=== PATIENT | female | born 2000 | race Hispanic/Latino ===

== ENCOUNTER 2021-05-11 12:02 | Day surgery (SDC) | payer OTHER ==
[2021-05-11] MEDS ORDERED: hydrALAZINE 20 MG/ML VIAL SLOW IVP PRN (13:01)
[2021-05-11] MEDS ORDERED: Famotidine 20 MG TAB PO SCH (13:15)
[2021-05-11 13:25] LABS: Hemoglobin 11.1 g/dL (12.0-15.5); Mean Corpuscular HGB CONC 31.8 g/dL (32.0-36.0); Mean Corpuscular Volume 88.1 fl (81.6-98.3); Platelet Count 292 10x3/uL (150-450); RBC Distribution Width 14.9 % (11.5-14.5); Red Blood Cell (RBC) Count 3.96 10x6/uL (3.90-5.03); White Blood Cell (WBC) Count 13.2 10x3/uL (3.5-10.5)
[2021-05-11 13:56] LABS: Lymphocytes 16 % (28-48); Monocytes 8 % (0-4)
[2021-05-11 13:57] LABS: Platelet Morphology Comment Appears Adequate
[2021-05-11 14:39] LABS: Bilirubin Neg (Negative); Blood, Urine Negative (Negative); Clarity Clear (Clear); Glucose, Urine (Dipstick) Normal (Negative); Ketone, Urine Negative (Negative); Leukocyte Negative (Negative); Nitrite Negative (Negative); Protein, Urine (Dipstick) Negative (Neg-Trace); Urobilinogen Normal mg/dL (Less than 2)
[2021-05-11 14:43] LABS: Urine Culture Reflex No No
[2021-05-11 14:47] LABS: Bacteria/HPF 1+ HPF (None Seen); RBC/HPF 0-3 HPF (0-3); WBC/HPF 0-3 HPF (0-3)
[2021-05-11 14:55] VITALS: BMI 30.3
[2021-05-11] MEDS ORDERED: Promethazine HCl 25 MG/ML VIAL IM SCH (18:00)
[2021-05-11] MEDS ORDERED: Morphine 4 MG/ML VIAL ONE (18:21)
[2021-05-11] MEDS ORDERED: Morphine 4 MG/ML VIAL IM SCH (18:30)
== END 2021-05-11 19:00 | disposition home or self-care (01) ==
LOC: CSHLD/OP 12:02
PROVIDERS: ATTEND Obstetrics & Gynecology
DX: O99.891 Other specified diseases and conditions complicating pregnancy (principal); R10.31 Right lower quadrant pain; R10.33 Periumbilical pain; N13.30 Unspecified hydronephrosis; O99.112 Other diseases of the blood and blood-forming organs and certain disorders involving the immune mechanism complicating pregnancy, second trimester; D72.829 Elevated white blood cell count, unspecified; Z3A.25 25 weeks gestation of pregnancy
CPT/HCPCS: 36415; 74181; 81001; 85007; 85027; J2270; J2550

== ENCOUNTER 2021-07-13 15:22 | Day surgery (SDC) | payer OTHER ==
[2021-07-13 15:37] VITALS: BMI 34.0
[2021-07-13] MEDS ORDERED: hydrALAZINE 20 MG/ML VIAL SLOW IVP PRN (16:32)
[2021-07-13] MEDS ORDERED: Acetaminophen 500 MG TAB PO SCH (16:45)
== END 2021-07-13 18:00 | disposition home or self-care (01) ==
LOC: CSHLD/OP 15:22
PROVIDERS: ATTEND Obstetrics & Gynecology
DX: O36.8130 Decreased fetal movements, third trimester, not applicable or unspecified (principal); O13.3 Gestational [pregnancy-induced] hypertension without significant proteinuria, third trimester; Z3A.33 33 weeks gestation of pregnancy; Z79.82 Long term (current) use of aspirin
CPT/HCPCS: 76819

== ENCOUNTER 2021-07-25 11:23 | Day surgery (SDC) | payer OTHER ==
[2021-07-25 12:18] VITALS: BMI 35.1
[2021-07-25] MEDS ORDERED: hydrALAZINE 20 MG/ML VIAL SLOW IVP PRN (12:45)
[2021-07-25 12:59] LABS: Creatinine, Urine 137.48 mg/dL (47-110)
[2021-07-25] MEDS ORDERED: Acetaminophen 500 MG TAB PO SCH ×2 (13:00→15:00)
[2021-07-25] MEDS ORDERED: Metoclopramide HCl 10 MG/2 ML VIAL IVP PRN (13:25)
[2021-07-25] MEDS ORDERED: diphenhydrAMINE 50 MG/ML VIAL IVP PRN (13:25)
[2021-07-25] MEDS ORDERED: Metoclopramide HCl 10 MG/2 ML VIAL IVP SCH (13:30)
[2021-07-25] MEDS ORDERED: diphenhydrAMINE 50 MG/ML VIAL IVP SCH (13:30)
[2021-07-25 13:46] LABS: #Eosinphils 0.1 10x3/uL (0.0-0.5); #Monocytes 0.9 10x3/uL (0.0-1.1); #Neutrophils 6.4 10x3/uL (1.5-8.4); %Basophils 0.3 % (0.0-2.0); %Eosinophils 0.9 % (0.0-6.0); %Lymphocytes 18.1 % (18.0-47.0); %Monocytes 10.1 % (0.0-10.0); %Neutrophils 69.8 % (40.0-75.0); Hemoglobin 11.2 g/dL (12.0-15.5); Mean Corpuscular HGB CONC 31.9 g/dL (32.0-36.0); Mean Corpuscular Hemoglobin 27.5 pg (27.0-33.0); Mean Corpuscular Volume 86.2 fl (81.6-98.3); Platelet Count 302 10x3/uL (150-450); Red Blood Cell (RBC) Count 4.07 10x6/uL (3.90-5.03); White Blood Cell (WBC) Count 9.2 10x3/uL (3.5-10.5)
[2021-07-25 14:01] LABS: ALT (SGPT) 12 U/L (8-55); AST (SGOT) 15 U/L (5-30); Albumin 3.3 g/dL (3.5-5.0); Alkaline Phosphatase 152 U/L (40-100); Anion Gap 13 mmol/L (10-20); BUN (Urea Nitrogen) 10 mg/dL (8.4-21.0); Bilirubin, Total 0.2 mg/dL (0.2-1.2); Calc. Creatinine Clearance 194 mL/min (70-130); Carbon Dioxide 21 mmol/L (22-29); Chloride 107 mmol/L (98-107); Globulin 3.3 g/dL (2.4-3.5); Glucose 107 mg/dL (70-105); Potassium 4.4 mmol/L (3.5-5.1); Protein, Total 6.6 g/dL (6.0-8.3); Sodium 137 mmol/L (136-145)
== END 2021-07-25 15:40 | disposition home or self-care (01) ==
LOC: CSHLD/OP 11:23
PROVIDERS: ATTEND Emergency Medicine
DX: O99.891 Other specified diseases and conditions complicating pregnancy (principal); R51.9 Headache, unspecified; R03.0 Elevated blood-pressure reading, without diagnosis of hypertension; O99.333 Smoking (tobacco) complicating pregnancy, third trimester; F17.290 Nicotine dependence, other tobacco product, uncomplicated; O10.013 Pre-existing essential hypertension complicating pregnancy, third trimester; Z3A.35 35 weeks gestation of pregnancy; Z79.82 Long term (current) use of aspirin; Z98.890 Other specified postprocedural states
CPT/HCPCS: 80053; 82570; 84156; 85025; J1200; J2765

== ENCOUNTER 2021-07-30 18:34 | Inpatient (IN) | payer OTHER ==
[2021-07-30] MEDS ORDERED: hydrALAZINE 20 MG/ML VIAL SLOW IVP PRN ×2 (19:16→23:14)
[2021-07-30 21:32] LABS: #Eosinphils 0.1 10x3/uL (0.0-0.5); #Neutrophils 11.4 10x3/uL (1.5-8.4); %Basophils 0.2 % (0.0-2.0); %Eosinophils 0.5 % (0.0-6.0); %Lymphocytes 12.2 % (18.0-47.0); %Monocytes 6.9 % (0.0-10.0); %Neutrophils 79.8 % (40.0-75.0); Hemoglobin 11.2 g/dL (12.0-15.5); Mean Corpuscular HGB CONC 31.6 g/dL (32.0-36.0); Mean Corpuscular Hemoglobin 26.9 pg (27.0-33.0); Mean Corpuscular Volume 85.1 fl (81.6-98.3); Mean Platelet Volume 11.3 fl (7.4-10.4); Platelet Count 287 10x3/uL (150-450); Red Blood Cell (RBC) Count 4.16 10x6/uL (3.90-5.03); White Blood Cell (WBC) Count 14.3 10x3/uL (3.5-10.5)
[2021-07-30 21:36] LABS: Bilirubin Neg (Negative); Blood, Urine 25 (Negative); Clarity Slightly Cloudy (Clear); Glucose, Urine (Dipstick) Normal (Negative); Ketone, Urine Negative (Negative); Leukocyte 100 (Negative); Nitrite Negative (Negative); Protein, Urine (Dipstick) 30 mg/dl (Neg-Trace); Specific Gravity, Urine 1.025 (1.002-1.036); Urobilinogen Normal mg/dL (Less than 2)
[2021-07-30 21:44] LABS: Bacteria/HPF 4+ HPF (None Seen); Mucous/LPF 2+ LPF (<2+); RBC/HPF 0-3 HPF (0-3); Squamous Epithelial 21-50 HPF (0-3)
[2021-07-30 21:47] LABS: ALT (SGPT) 10 U/L (8-55); AST (SGOT) 13 U/L (5-30); Albumin 3.4 g/dL (3.5-5.0); Alkaline Phosphatase 153 U/L (40-100); Anion Gap 15 mmol/L (10-20); BUN (Urea Nitrogen) 10 mg/dL (8.4-21.0); Bilirubin, Total 0.2 mg/dL (0.2-1.2); Calc. Creatinine Clearance 0 mL/min (70-130); Calcium 9.3 mg/dL (7.8-10.44); Carbon Dioxide 21 mmol/L (22-29); Chloride 107 mmol/L (98-107); Globulin 2.8 g/dL (2.4-3.5); Glucose 98 mg/dL (70-105); Protein, Total 6.2 g/dL (6.0-8.3); Sodium 139 mmol/L (136-145)
[2021-07-30] MEDS ORDERED: Acetaminophen 500 MG TAB PO SCH (22:00)
[2021-07-30] MEDS ORDERED: Promethazine HCl 25 MG/ML VIAL IM PRN (23:14)
[2021-07-30] MEDS ORDERED: Ondansetron PF 4 MG/2 ML Vial IVP PRN (23:14)
[2021-07-30] MEDS ORDERED: traMADol HCl 50 MG TAB PO PRN (23:24)
[2021-07-31 00:15] VITALS: BMI 36.0
[2021-07-31] MEDS ORDERED: Labetalol HCl 100 MG TAB PO SCH ×3 (00:15→13:30)
[2021-07-31] MEDS ORDERED: Acetaminophen 325 MG TAB PO PRN (08:30)
[2021-07-31] MEDS ORDERED: traMADol HCl 50 MG TAB PO PRN (08:31)
[2021-07-31] MEDS: Prenatal Vitamin 1 TAB PO SCH (08:52)
[2021-07-31] MEDS: Aspirin Chewable 81 MG TAB PO SCH (08:53)
[2021-07-31] MEDS ORDERED: Acetaminophen 500 MG TAB PO SCH (10:00)
[2021-07-31] MEDS ORDERED: Acetaminophen 325 MG TAB PO SCH (10:00)
[2021-07-31 10:30] LABS: Anion Gap 13 mmol/L (10-20); BUN (Urea Nitrogen) 10 mg/dL (8.4-21.0); Calc. Creatinine Clearance 196 mL/min (70-130); Calcium 8.9 mg/dL (7.8-10.44); Carbon Dioxide 21 mmol/L (22-29); Chloride 109 mmol/L (98-107); Glucose 127 mg/dL (70-105); Potassium 3.7 mmol/L (3.5-5.1); Sodium 139 mmol/L (136-145)
[2021-07-31] MEDS ORDERED: Morphine 4 MG/ML VIAL SLOW IVP PRN (11:26)
[2021-07-31] MEDS: HYDROcodone/Acetaminophen 5/325 mg Tablet PO PRN (12:12)
[2021-07-31 12:50] LABS: Creatinine, Urine 66.87 mg/dL (47-110); Protein, Urine Random Quant Less than 10 mg/dL (1-14)
[2021-07-31] MEDS ORDERED: HYDROcodone/Acetaminophen 5/325 mg Tablet PO PRN (16:44)
[2021-07-31] MEDS ORDERED: diphenhydrAMINE 50 MG/ML VIAL IVP SCH ×2 (16:45→17:00)
[2021-07-31 22:06] LABS: SARS-CoV-2 PCR by NAA Not Detected (NotDetected)
[2021-08-01 04:39] LABS: Anion Gap 17 mmol/L (10-20); BUN (Urea Nitrogen) 8 mg/dL (8.4-21.0); Calc. Creatinine Clearance 224 mL/min (70-130); Carbon Dioxide 19 mmol/L (22-29); Chloride 107 mmol/L (98-107); Glucose 89 mg/dL (70-105); Sodium 139 mmol/L (136-145)
[2021-08-01] MEDS: HYDROcodone/Acetaminophen 5/325 mg Tablet PO PRN (08:52)
[2021-08-01] MEDS: Aspirin Chewable 81 MG TAB PO SCH (08:52)
[2021-08-01] MEDS: Prenatal Vitamin 1 TAB PO SCH (08:52)
[2021-08-01 15:19] VITALS: BP 132/81; TEMP 97.8
== END 2021-08-01 15:55 | disposition home or self-care (01) | DRG 832 ==
LOC: CSHLD/OP 18:34 → CSHLD 23:44 → INTOOBSV 23:44 → CSHANTE 07-31 01:00 → OBSVTOIN 08-01 07:43
PROVIDERS: ADMIT Family Medicine; ATTEND Family Medicine
DX: O99.891 Other specified diseases and conditions complicating pregnancy (principal); N13.30 Unspecified hydronephrosis; O10.913 Unspecified pre-existing hypertension complicating pregnancy, third trimester; Z3A.36 36 weeks gestation of pregnancy; Z20.822 Contact with and (suspected) exposure to COVID-19; Z79.899 Other long term (current) drug therapy; O43.893 Other placental disorders, third trimester; Z79.82 Long term (current) use of aspirin; O99.353 Diseases of the nervous system complicating pregnancy, third trimester; G43.909 Migraine, unspecified, not intractable, without status migrainosus
CPT/HCPCS: 36415; 51701; 76700; 76705; 76815; 80048; 80053; 81003; 81015; 82570; 84156; 85025; 99285; J1200; J2270; U0003; U0005

== ENCOUNTER 2021-08-05 18:00 | Inpatient (IN) | payer OTHER ==
[~2021-08-05 18:00] MED LIST: Bupivacaine 0.25% HCL 30 ML VIAL ONE; Bupivacaine HCl 0.5%/Epinephrine 1:200,000/PF 30 ml Vial ONE
[2021-08-05] MEDS ORDERED: hydrALAZINE 20 MG/ML VIAL SLOW IVP PRN (20:21)
[2021-08-05] MEDS ORDERED: Promethazine HCl 25 MG/ML VIAL IM PRN (20:21)
[2021-08-05] MEDS ORDERED: Ondansetron PF 4 MG/2 ML Vial IVP PRN (20:21)
[2021-08-05] MEDS ORDERED: Lidocaine 1% (PF) 30 ML VIAL SC PRN (20:26)
[2021-08-05 20:44] VITALS: BMI 36.6
[2021-08-05 22:01] LABS: #Monocytes 0.9 10x3/uL (0.0-1.1); %Basophils 0.2 % (0.0-2.0); %Eosinophils 0.5 % (0.0-6.0); %Lymphocytes 19.6 % (18.0-47.0); %Monocytes 9.8 % (0.0-10.0); %Neutrophils 69.1 % (40.0-75.0); Hemoglobin 10.2 g/dL (12.0-15.5); Mean Corpuscular HGB CONC 32.2 g/dL (32.0-36.0); Mean Corpuscular Volume 83.9 fl (81.6-98.3); Mean Platelet Volume 11.5 fl (7.4-10.4); Platelet Count 265 10x3/uL (150-450); RBC Distribution Width 13.5 % (11.5-14.5); Red Blood Cell (RBC) Count 3.78 10x6/uL (3.90-5.03); White Blood Cell (WBC) Count 8.7 10x3/uL (3.5-10.5)
[2021-08-05 22:16] LABS: ALT (SGPT) 13 U/L (8-55); AST (SGOT) 16 U/L (5-30); Albumin 3.2 g/dL (3.5-5.0); Alkaline Phosphatase 145 U/L (40-100); Anion Gap 14 mmol/L (10-20); BUN (Urea Nitrogen) 13 mg/dL (8.4-21.0); Bilirubin, Total 0.2 mg/dL (0.2-1.2); Calc. Creatinine Clearance 191 mL/min (70-130); Calcium 9.3 mg/dL (7.8-10.44); Carbon Dioxide 20 mmol/L (22-29); Chloride 108 mmol/L (98-107); Creatinine, Urine 88.93 mg/dL (47-110); Globulin 3.1 g/dL (2.4-3.5); Glucose 83 mg/dL (70-105); Potassium 3.9 mmol/L (3.5-5.1); Protein, Total 6.3 g/dL (6.0-8.3); Protein, Urine Random Quant Less than 10 mg/dL (1-14); Sodium 138 mmol/L (136-145)
[2021-08-05] MEDS: Misoprostol 100 MCG TAB VAG SCH (22:18)
[2021-08-05] MEDS ORDERED: Lactated Ringer's 1,000 ML IV SCH (22:30)
[2021-08-05 22:33] LABS: Hep B Surf Ag Non-Reactive S/CO (NonReactive); Syphilis Antibody Nonreactive (Nonreactive); Syphilis Antibody Index 0.04 S/CO (<1.00 Non-Reactive)
[2021-08-06] MEDS ORDERED: HYDROcodone/Acetaminophen 5/325 mg Tablet PO SCH (02:45)
[2021-08-06] MEDS ORDERED: Acetaminophen 500 MG TAB PO SCH (02:45)
[2021-08-06] MEDS: NS w/ Oxytocin 30 units 500 ML IV SCH (13:16)
[2021-08-06] MEDS ORDERED: Fentanyl 2 mcg/Bup 0.1% Cadd 100 ML ONE (19:05)
[2021-08-06] MEDS ORDERED: Fentanyl 100 MCG/2 ML VIAL ONE (19:57)
[2021-08-06] MEDS ORDERED: Naloxone HCl 0.4 mg/ml Vial IVP PRN ×2 (20:01)
[2021-08-06] MEDS ORDERED: Ondansetron PF 4 MG/2 ML Vial IVP PRN (20:01)
[2021-08-06] MEDS ORDERED: diphenhydrAMINE 50 MG/ML VIAL IVP PRN (20:01)
[2021-08-06] MEDS ORDERED: Promethazine HCl 25 MG/ML VIAL IM PRN (20:01)
[2021-08-06] MEDS ORDERED: Lactated Ringer's 500 ML IV PRN (20:01)
[2021-08-06] MEDS ORDERED: Fentanyl 100 MCG/2 ML VIAL EPIDURAL PRN (20:01)
[2021-08-06] MEDS ORDERED: ePHEDrine Sulfate 50 MG/10 ML VIAL SLOW IVP PRN (20:01)
[2021-08-06] MEDS ORDERED: Moisturizing Cream (Eucerin) 113 GM JAR TOP PRN (20:01)
[2021-08-06] MEDS ORDERED: Communication Order-Pharmacy FS SCH (20:15)
[2021-08-06] MEDS ORDERED: Fentanyl 2 mcg/Bupivacaine 0.1% Cassette 100 ML EPIDURAL SCH (20:15)
[2021-08-07] MEDS ORDERED: Fentanyl 2 mcg/Bup 0.1% Cadd 100 ML ONE (03:25)
[2021-08-07] MEDS ORDERED: Misoprostol 200 MCG TAB ONE (05:02)
[2021-08-07] MEDS ORDERED: Lidocaine 1% PF 10 ML AMP ONE (05:03)
[2021-08-07] MEDS ORDERED: Ibuprofen 800 MG TAB PO PRN (10:40)
[2021-08-07] MEDS: NS w/ Oxytocin 30 units 500 ML IV SCH (11:00)
[2021-08-07] MEDS ORDERED: Ibuprofen 800 MG TAB PO SCH (11:00)
[2021-08-07] MEDS ORDERED: diphenhydrAMINE 25 MG CAP PO PRN (11:59)
[2021-08-07] MEDS ORDERED: Milk Of Magnesia 30 ML UDCUP PO PRN (11:59)
[2021-08-07] MEDS ORDERED: Benzocaine-Menthol 82.5 ML CAN TOP PRN (11:59)
[2021-08-07] MEDS ORDERED: Preparation H Ointment 28 GM TUBE PR PRN (11:59)
[2021-08-07] MEDS ORDERED: hydrALAZINE 20 MG/ML VIAL SLOW IVP PRN (11:59)
[2021-08-07] MEDS ORDERED: Ondansetron PF 4 MG/2 ML Vial IVP PRN (11:59)
[2021-08-07] MEDS ORDERED: Bisacodyl 10 MG SUPP PR PRN (11:59)
[2021-08-07] MEDS ORDERED: Lanolin Ointment 7 GM TUBE TOP PRN (11:59)
[2021-08-07] MEDS: Misoprostol 100 MCG TAB VAG SCH ×2 (12:05→12:06)
[2021-08-07] MEDS: Ferrous Sulfate 325 MG TAB PO SCH (17:13)
[2021-08-07] MEDS: Docusate 100 MG CAP PO SCH (21:34)
[2021-08-07] MEDS: Ibuprofen 800 MG TAB PO SCH (21:34)
[2021-08-08] MEDS: Ibuprofen 800 MG TAB PO SCH ×5 (04:32→22:45)
[2021-08-08] MEDS: Ferrous Sulfate 325 MG TAB PO SCH ×2 (08:43→17:16)
[2021-08-08] MEDS: Docusate 100 MG CAP PO SCH ×2 (08:48→22:44)
[2021-08-08] MEDS: Acetaminophen 325 MG TAB PO PRN ×2 (10:54→18:04)
[2021-08-09] MEDS: Acetaminophen 325 MG TAB PO PRN (00:03)
[2021-08-09] MEDS: Ibuprofen 800 MG TAB PO SCH ×2 (06:31→14:11)
[2021-08-09 07:58] VITALS: BP 121/73; TEMP 98.2
[2021-08-09] MEDS ORDERED: Prenatal Vitamin 1 TAB PO SCH (09:00)
[2021-08-09] MEDS: Docusate 100 MG CAP PO SCH (09:11)
[2021-08-09] MEDS: Ferrous Sulfate 325 MG TAB PO SCH ×2 (09:11→16:20)
== END 2021-08-09 16:55 | disposition home or self-care (01) | DRG 806 ==
LOC: CSHLD 19:46 → CSHPP 08-07 11:50
PROVIDERS: ADMIT Student in an Organized Health Care Education/Training Program; ATTEND Student in an Organized Health Care Education/Training Program
PROC: 3E0P7VZ Introduction of Hormone into Female Reproductive, Via Natural or Artificial Opening (ICD-10-PCS; principal; 2021-08-05)
PROC: 3E033VJ Introduction of Other Hormone into Peripheral Vein, Percutaneous Approach (ICD-10-PCS; 2021-08-06)
PROC: 10E0XZZ Delivery of Products of Conception, External Approach (ICD-10-PCS; 2021-08-07)
PROC: 0KQM0ZZ Repair Perineum Muscle, Open Approach (ICD-10-PCS; 2021-08-07)
DX: O99.892 Other specified diseases and conditions complicating childbirth (principal); N13.30 Unspecified hydronephrosis; Z37.0 Single live birth; O10.92 Unspecified pre-existing hypertension complicating childbirth; O99.354 Diseases of the nervous system complicating childbirth; Z3A.37 37 weeks gestation of pregnancy; Z79.899 Other long term (current) drug therapy; D56.3 Thalassemia minor; O99.02 Anemia complicating childbirth; G43.909 Migraine, unspecified, not intractable, without status migrainosus; Z79.82 Long term (current) use of aspirin; O43.113 Circumvallate placenta, third trimester; O42.02 Full-term premature rupture of membranes, onset of labor within 24 hours of rupture; O70.1 Second degree perineal laceration during delivery
CPT/HCPCS: 36415; 51701; 51702; 76815; 80053; 82570; 84156; 86780; 86850; 86900; 86901; 87340; J2590; S0020

== ENCOUNTER 2022-11-05 17:23 | Day surgery (SDC) | payer OTHER ==
[2022-11-05 17:56] VITALS: BMI 27.8
[2022-11-05] MEDS ORDERED: hydrALAZINE 20 MG/ML VIAL SLOW IVP PRN (17:56)
[2022-11-05] MEDS ORDERED: Calcium Gluc 4.6 MEQ/10 ML (100 MG/ML) SLOW IVP PRN (18:05)
[2022-11-05] MEDS ORDERED: Lorazepam 2 MG/ML VIAL SLOW IVP PRN (18:05)
[2022-11-05 18:57] LABS: #Monocytes 0.8 10x3/uL (0.0-1.1); #Neutrophils 6.8 10x3/uL (1.5-8.4); %Basophils 0.2 % (0.0-2.0); %Eosinophils 0.3 % (0.0-6.0); %Lymphocytes 17.9 % (18.0-47.0); %Monocytes 8.4 % (0.0-10.0); %Neutrophils 72.5 % (40.0-75.0); Hematocrit 36.5 % (34.9-44.5); Hemoglobin 11.9 g/dL (12.0-15.5); Mean Corpuscular HGB CONC 32.6 g/dL (32.0-36.0); Mean Corpuscular Hemoglobin 27.9 pg (27.0-33.0); Mean Corpuscular Volume 85.5 fl (81.6-98.3); Mean Platelet Volume 10.5 fl (7.4-10.4); Platelet Count 316 10x3/uL (150-450); RBC Distribution Width 13.2 % (11.5-14.5); Red Blood Cell (RBC) Count 4.27 10x6/uL (3.90-5.03); White Blood Cell (WBC) Count 9.4 10x3/uL (3.5-10.5)
[2022-11-05] MEDS ORDERED: Lactated Ringer's 1,000 ML IV SCH (19:00)
[2022-11-05 19:04] LABS: Creatinine, Urine 181.6 mg/dL (47-110)
[2022-11-05 19:12] LABS: ALT (SGPT) 10 U/L (8-55); AST (SGOT) 15 U/L (5-34); Albumin 3.2 g/dL (3.5-5.0); Alkaline Phosphatase 104 U/L (40-100); Anion Gap 13 mmol/L (10-20); BUN (Urea Nitrogen) 8 mg/dL (7.0-18.7); Bilirubin, Total 0.3 mg/dL (0.2-1.2); Calc. Creatinine Clearance 184 mL/min (70-130); Calcium 8.8 mg/dL (7.8-10.44); Carbon Dioxide 20 mmol/L (22-29); Chloride 107 mmol/L (98-107); Estimated GFR 136; Globulin 3.2 g/dL (2.4-3.5); Glucose 73 mg/dL (70-105); Potassium 4.1 mmol/L (3.5-5.1); Protein, Total 6.4 g/dL (6.0-8.3); Sodium 136 mmol/L (136-145)
[2022-11-05] MEDS ORDERED: Acetaminophen 325 MG TAB PO SCH (20:00)
== END 2022-11-05 22:27 | disposition home or self-care (01) ==
LOC: CSHLD/OP 17:23
PROVIDERS: ATTEND Family Medicine
DX: O99.891 Other specified diseases and conditions complicating pregnancy (principal); R51.9 Headache, unspecified; R53.81 Other malaise; O10.913 Unspecified pre-existing hypertension complicating pregnancy, third trimester; O99.333 Smoking (tobacco) complicating pregnancy, third trimester; O99.343 Other mental disorders complicating pregnancy, third trimester; F43.10 Post-traumatic stress disorder, unspecified; F32.A Depression, unspecified; F17.200 Nicotine dependence, unspecified, uncomplicated; Z79.82 Long term (current) use of aspirin; Z3A.34 34 weeks gestation of pregnancy; Z79.899 Other long term (current) drug therapy
CPT/HCPCS: 80053; 82570; 84156; 85025; 99283

== ENCOUNTER 2022-11-28 03:41 | Inpatient (IN) | payer OTHER ==
[2022-11-28 04:05] VITALS: BMI 34.5
[2022-11-28] MEDS ORDERED: hydrALAZINE 20 MG/ML VIAL SLOW IVP PRN (04:46)
[2022-11-28] MEDS ORDERED: Acetaminophen 500 MG TAB PO PRN (04:46)
[2022-11-28] MEDS ORDERED: Docusate 100 MG CAP PO PRN (04:46)
[2022-11-28] MEDS ORDERED: Promethazine HCl 25 MG/ML VIAL IM PRN ×2 (04:46→06:47)
[2022-11-28] MEDS ORDERED: Ondansetron PF 4 MG/2 ML Vial IVP PRN ×2 (04:46→06:47)
[2022-11-28] MEDS ORDERED: Diphenoxylate HCl/Atropine Tablet PO PRN (04:46)
[2022-11-28] MEDS ORDERED: Misoprostol 200 MCG TAB PR PRN (04:46)
[2022-11-28] MEDS ORDERED: Lidocaine 1% (PF) 30 ML VIAL SC PRN (04:46)
[2022-11-28] MEDS ORDERED: Carboprost 250 MCG/ML AMP IM PRN (04:46)
[2022-11-28] MEDS ORDERED: Oxytocin 30 units/NS 500 ML 500 ML IV SCH ×3 (05:00→11:45)
[2022-11-28] MEDS ORDERED: Penicillin G Potassium 5 MILL.UNITS in Sodium Chloride 0.9% 100 ML IVPB SCH (05:00)
[2022-11-28] MEDS ORDERED: Penicillin G Potassium 5 MILL.UNITS VIAL ONE (05:11)
[2022-11-28 05:30] LABS: Hematocrit 36.4 % (34.9-44.5); Hemoglobin 11.7 g/dL (12.0-15.5); Mean Corpuscular HGB CONC 32.1 g/dL (32.0-36.0); Mean Corpuscular Hemoglobin 27.3 pg (27.0-33.0); Mean Corpuscular Volume 84.8 fl (81.6-98.3); Mean Platelet Volume 11.5 fl (7.4-10.4); Platelet Count 275 10x3/uL (150-450); RBC Distribution Width 13.6 % (11.5-14.5); Red Blood Cell (RBC) Count 4.29 10x6/uL (3.90-5.03); White Blood Cell (WBC) Count 11.1 10x3/uL (3.5-10.5)
[2022-11-28] MEDS ORDERED: fentaNYL/Ropivacaine Epidural 100 ML ONE (05:43)
[2022-11-28] MEDS: Lactated Ringer's 1,000 ML IV SCH (05:57)
[2022-11-28 06:01] LABS: Syphilis Antibody Nonreactive (Nonreactive); Syphilis Antibody Index 0.04 S/CO (<1.00 Non-Reactive)
[2022-11-28 06:02] LABS: HBSAg Index 0.17 S/CO (0-0.99); Hep B Surf Ag - L&D Non-Reactive S/CO (NonReactive)
[2022-11-28] MEDS ORDERED: Bupivacaine 0.25% HCL 30 ML VIAL ONE ×3 (06:34→23:51)
[2022-11-28] MEDS ORDERED: Moisturizing Cream (Eucerin) 113 GM JAR TOP PRN (06:47)
[2022-11-28] MEDS ORDERED: Lactated Ringer's 500 ML IV PRN (06:47)
[2022-11-28] MEDS ORDERED: Naloxone HCl 0.4 mg/ml Vial IVP PRN ×2 (06:47)
[2022-11-28] MEDS ORDERED: Acetaminophen 325 MG TAB PO PRN (06:47)
[2022-11-28] MEDS ORDERED: diphenhydrAMINE 50 MG/ML VIAL IVP PRN (06:47)
[2022-11-28] MEDS ORDERED: ePHEDrine Sulfate 50 MG/10 ML VIAL SLOW IVP PRN (06:47)
[2022-11-28] MEDS ORDERED: fentaNYL 2 mcg/Ropivacaine 0.2% Epidural 100 ML CADD EPIDURAL SCH (07:00)
[2022-11-28] MEDS ORDERED: Communication Order-Pharmacy FS SCH (07:00)
[2022-11-28] MEDS ORDERED: ePHEDrine Sulfate 50 MG/10 ML VIAL ONE (08:00)
[2022-11-28] MEDS ORDERED: Lidocaine 2% PF 5 ML VIAL ONE (08:00)
[2022-11-28] MEDS ORDERED: Escitalopram Oxalate 10 mg Tablet PO SCH (09:00)
[2022-11-28] MEDS: Penicillin G 2.5 MILL.units 2.5 MILL.UNITS in Premix Bag 1 BAG IVPB SCH ×3 (09:15→17:16)
[2022-11-28] MEDS: Labetalol HCl 100 MG TAB PO SCH (09:25)
[2022-11-28] MEDS ORDERED: Dextrose 5%-Lactated Ringers 1,000 ML IV SCH (14:45)
[2022-11-28] MEDS ORDERED: CEFAZOLIN 2 GM VIAL ONE (21:35)
[2022-11-28] MEDS ORDERED: Azithromycin 500 MG VIAL ONE (21:36)
[2022-11-28] MEDS ORDERED: Morphine PF 10 MG/10 ML VIAL ONE (22:33)
[2022-11-28] MEDS ORDERED: Dexamethasone 4 mg/ml Vial ONE (22:34)
[2022-11-28] MEDS ORDERED: Ondansetron PF 4 MG/2 ML Vial ONE (22:34)
[2022-11-28] MEDS ORDERED: Promethazine HCl 25 MG/ML VIAL ONE (22:34)
[2022-11-28] MEDS ORDERED: Metoclopramide HCl 10 MG/2 ML VIAL ONE (22:34)
[2022-11-28] MEDS ORDERED: PHENYLEPHRINE-NS 100 MCG/ML 10 ML SYRINGE ONE (22:34)
[2022-11-28] MEDS ORDERED: Lidocaine 2% MPF 10 ML AMP (For Epidural Use) ONE (22:50)
[2022-11-28] MEDS ORDERED: KETAMINE 100 MG/ML (5ML VIAL) ONE (22:57)
[2022-11-28] MEDS ORDERED: Tranexamic Acid 1,000 MG/10 ML VIAL ONE (23:14)
[2022-11-28] MEDS ORDERED: Ketorolac Tromethamine 30 MG/ML VIAL ONE (23:51)
[2022-11-28] MEDS ORDERED: Oxytocin 10 UNITS/ML VIAL ONE (23:51)
[2022-11-29] MEDS ORDERED: Promethazine HCl 25 MG SUPP PR PRN (00:35)
[2022-11-29] MEDS ORDERED: Naloxone HCl 0.4 mg/ml Vial IV PRN (00:35)
[2022-11-29] MEDS ORDERED: Promethazine HCl 25 MG/ML VIAL IM PRN ×2 (00:35→04:56)
[2022-11-29] MEDS ORDERED: Ondansetron PF 4 MG/2 ML Vial IVP PRN ×2 (00:35→04:56)
[2022-11-29] MEDS ORDERED: diphenhydrAMINE 50 MG/ML VIAL IVP PRN (00:35)
[2022-11-29] MEDS ORDERED: Fentanyl 50 MCG/1 ML VIAL SLOW IVP PRN (00:35)
[2022-11-29] MEDS ORDERED: Meperidine HCl/PF 25 MG/ML VIAL SLOW IVP PRN (00:35)
[2022-11-29] MEDS ORDERED: Ondansetron HCl/PF 4 MG/2 ML Vial IVP PRN (00:35)
[2022-11-29] MEDS ORDERED: Moisturizing Cream (Eucerin) 113 GM JAR TOP PRN (00:35)
[2022-11-29] MEDS ORDERED: Naloxone HCl 0.4 mg/ml Vial IVP PRN ×2 (00:35)
[2022-11-29] MEDS ORDERED: Communication Order-Pharmacy FS SCH (00:45)
[2022-11-29] MEDS ORDERED: Ketorolac Tromethamine 30 MG/ML VIAL IVP SCH (00:45)
[2022-11-29] MEDS ORDERED: fentaNYL 50 mcg/mL 1 mL Vial ONE (02:42)
[2022-11-29] MEDS ORDERED: hydrALAZINE 20 MG/ML VIAL SLOW IVP PRN (04:56)
[2022-11-29] MEDS ORDERED: Misoprostol 200 MCG TAB PR PRN (04:56)
[2022-11-29] MEDS ORDERED: Lanolin Ointment 7 GM TUBE TOP PRN (04:56)
[2022-11-29] MEDS ORDERED: Oxytocin 30 units/NS 500 ML 500 ML IV SCH (04:56)
[2022-11-29] MEDS ORDERED: Methylergonovine 0.2 MG/ML VIAL IM PRN (04:56)
[2022-11-29] MEDS ORDERED: Boostrix 0.5 ML (Tdap) VIAL (>/=7 yrs of age) IM ONE (04:56)
[2022-11-29] MEDS: Labetalol HCl 100 MG TAB PO SCH (05:48)
[2022-11-29] MEDS: Penicillin G 2.5 MILL.units 2.5 MILL.UNITS in Premix Bag 1 BAG IVPB SCH (05:48)
[2022-11-29] MEDS: Ferrous Sulfate 325 MG TAB PO SCH ×2 (07:40→23:14)
[2022-11-29] MEDS: Prenatal Vitamin 1 TAB PO SCH (09:00)
[2022-11-29] MEDS ORDERED: Acetaminophen 500 MG TAB PO SCH (09:00)
[2022-11-29] MEDS ORDERED: Acetaminophen 500 MG TAB PO PRN (10:33)
[2022-11-29] MEDS: Ketorolac Tromethamine 30 MG/ML VIAL IVP PRN ×2 (11:26→23:28)
[2022-11-29] MEDS: HYDROcodone/Acetaminophen 5/325 mg Tablet PO PRN ×3 (11:26→23:29)
[2022-11-29 12:08] LABS: #Monocytes 1.2 10x3/uL (0.0-1.1); #Neutrophils 10.4 10x3/uL (1.5-8.4); %Basophils 0.1 % (0.0-2.0); %Eosinophils 0.1 % (0.0-6.0); %Monocytes 8.7 % (0.0-10.0); %Neutrophils 76.4 % (40.0-75.0); Hematocrit 27.1 % (34.9-44.5); Hemoglobin 8.7 g/dL (12.0-15.5); Mean Corpuscular HGB CONC 32.1 g/dL (32.0-36.0); Mean Corpuscular Hemoglobin 27.5 pg (27.0-33.0); Mean Corpuscular Volume 85.8 fl (81.6-98.3); Mean Platelet Volume 11.5 fl (7.4-10.4); Platelet Count 225 10x3/uL (150-450); RBC Distribution Width 13.7 % (11.5-14.5); Red Blood Cell (RBC) Count 3.16 10x6/uL (3.90-5.03); White Blood Cell (WBC) Count 13.6 10x3/uL (3.5-10.5)
[2022-11-29] MEDS: Simethicone Chewable 80 MG TAB PO PRN ×2 (12:18→23:30)
[2022-11-29 18:08] LABS: Hemoglobin 8.5 g/dL (12.0-15.5)
[2022-11-30] MEDS: HYDROcodone/Acetaminophen 5/325 mg Tablet PO PRN ×4 (06:15→20:43)
[2022-11-30] MEDS: Ibuprofen 800 MG TAB PO SCH ×2 (06:16→16:19)
[2022-11-30] MEDS: Ferrous Sulfate 325 MG TAB PO SCH ×2 (08:29→20:43)
[2022-11-30] MEDS: Prenatal Vitamin 1 TAB PO SCH (08:29)
[2022-11-30] MEDS ORDERED: Polyethylene Glycol 3350 17 GM Packet PO SCH (09:00)
[2022-11-30] MEDS: Docusate 100 MG CAP PO SCH ×2 (10:31→20:43)
[2022-11-30] MEDS: Simethicone Chewable 80 MG TAB PO PRN (20:43)
[2022-12-01] MEDS: Ibuprofen 800 MG TAB PO SCH ×2 (03:59→06:19)
[2022-12-01] MEDS: HYDROcodone/Acetaminophen 5/325 mg Tablet PO PRN ×2 (04:00→07:34)
[2022-12-01] MEDS: Prenatal Vitamin 1 TAB PO SCH (07:34)
[2022-12-01] MEDS: Docusate 100 MG CAP PO SCH (07:34)
[2022-12-01 08:36] VITALS: BP 126/71; TEMP 97.7
[2022-12-01] MEDS ORDERED: Labetalol HCl 100 MG TAB PO SCH (09:00)
[2022-12-01] MEDS ORDERED: Polyethylene Glycol 3350 17 GM Packet PO SCH (09:00)
[2022-12-01] MEDS: Ferrous Sulfate 325 MG TAB PO SCH (09:44)
[2022-12-01] MEDS: Lactated Ringer's 1,000 ML IV SCH (10:04)
== END 2022-12-01 12:15 | disposition home or self-care (01) | DRG 787 ==
LOC: CSHLD/OP 03:41 → CSHLD 08:08 → OBSVTOIN 08:09 → CSHPP 11-29 05:20
PROVIDERS: ADMIT Family Medicine; ATTEND Family Medicine
PROC: 10D00Z1 Extraction of Products of Conception, Low, Open Approach (ICD-10-PCS; principal; 2022-11-28)
DX: O99.824 Streptococcus B carrier state complicating childbirth (principal); D62 Acute posthemorrhagic anemia; O10.92 Unspecified pre-existing hypertension complicating childbirth; Z3A.37 37 weeks gestation of pregnancy; Z37.0 Single live birth; Z79.899 Other long term (current) drug therapy; Z82.49 Family history of ischemic heart disease and other diseases of the circulatory system; O42.02 Full-term premature rupture of membranes, onset of labor within 24 hours of rupture; O76 Abnormality in fetal heart rate and rhythm complicating labor and delivery; O62.1 Secondary uterine inertia; O99.214 Obesity complicating childbirth; E66.9 Obesity, unspecified; O32.8XX0 Maternal care for other malpresentation of fetus, not applicable or unspecified; O90.81 Anemia of the puerperium
CPT/HCPCS: 36415; 51702; 85025; 85027; 86780; 86850; 86900; 86901; 87340; 99285; J1100; J1200; J1885; J2001; J2274; J2405; J2540; J2550; J2590; J2765; J3010; S0020

== ENCOUNTER 2022-12-06 11:40 | Emergency (ER) | payer OTHER | END 2022-12-06 12:11 | disposition home or self-care (01) | LOC: CSHERS 11:40 | DX: O90.0 Disruption of cesarean delivery wound (principal) | CPT/HCPCS: 99283 ==